=== PATIENT | male | born 1975 | race Caucasian/White ===

== ENCOUNTER 2020-03-03 10:43 | Outpatient (CLI) | payer BC | END 2020-03-03 10:44 | disposition home or self-care (01) | LOC: CTENTCT 10:43 | PROVIDERS: ATTEND Otolaryngology Plastic Surgery within the Head & Neck | DX: J32.8 Other chronic sinusitis (principal) | CPT/HCPCS: 70486 ==

== ENCOUNTER 2021-10-28 09:45 | Day surgery (SDC) | payer BC, OTHER ==
[2021-10-23 13:41] VITALS: BMI 29.9
[2021-10-28] MEDS ORDERED: AFRIN NASAL MIST 15 ML BOT ONE ×2 (09:55→10:00)
[2021-10-28] MEDS ORDERED: Lidocaine 1% w/Epinephrine 1:100K 20 ML VIAL ONE (09:55)
[2021-10-28] MEDS ORDERED: Midazolam HCl 2 mg/2 ml Vial ONE (10:19)
[2021-10-28] MEDS ORDERED: Bacitracin Zinc Ointment 30 gm TUBE ONE (10:21)
[2021-10-28] MEDS ORDERED: Fentanyl 250 MCG/5 ML VIAL ONE (10:27)
[2021-10-28] MEDS ORDERED: Ondansetron PF 4 MG/2 ML Vial ONE (10:54)
[2021-10-28] MEDS ORDERED: Rocuronium Bromide 10 MG/ML (10ML VIAL) ONE (10:54)
[2021-10-28] MEDS ORDERED: Lidocaine 1% PF 5 ML VIAL ONE (10:54)
[2021-10-28] MEDS ORDERED: PROPOFOL 200 MG/20 ML VIAL ONE (10:54)
[2021-10-28] MEDS ORDERED: Dexamethasone 20 MG/5 ML VIAL ONE (10:54)
[2021-10-28] MEDS ORDERED: SUGAMMADEX SODIUM 200 MG/2 ML VIAL ONE (11:22)
[2021-10-28] MEDS ORDERED: Fentanyl 100 MCG/2 ML VIAL ONE (12:10)
[2021-10-28] MEDS ORDERED: Promethazine HCl 25 MG/ML VIAL ONE (13:02)
[2021-10-28] MEDS ORDERED: Morphine 2 MG/ML VIAL ONE ×2 (13:02→13:28)
[2021-10-28] MEDS ORDERED: HYDROcodone/Acetaminophen 5/325 mg Tablet ONE (13:03)
== END 2021-10-28 14:55 | disposition home or self-care (01) ==
LOC: SDC 09:45
PROVIDERS: ATTEND Otolaryngology Plastic Surgery within the Head & Neck
DX: J32.9 Chronic sinusitis, unspecified (principal); J34.2 Deviated nasal septum; J34.3 Hypertrophy of nasal turbinates; J34.89 Other specified disorders of nose and nasal sinuses; J30.1 Allergic rhinitis due to pollen; J30.81 Allergic rhinitis due to animal (cat) (dog) hair and dander; Z87.891 Personal history of nicotine dependence; Z79.899 Other long term (current) drug therapy
CPT/HCPCS: C1889; J1100; J2250; J2270; J2405; J2550; J2704; J3010